=== PATIENT | male | born 1995 | race Caucasian/White ===

== ENCOUNTER 2022-11-30 04:29 | Emergency (ER) | payer BC, OTHER ==
[~2022-11-30] VITALS: Ht 185.4 cm; Wt 122.7 kg
[2022-11-30] MEDS ORDERED: LIDOCAINE VISCOUS 2% 15ML UD PO ONE (07:15)
[2022-11-30 07:19] VITALS: BP 151/98
[2022-11-30] MEDS ORDERED: LIDO2SOL18 MT (07:32)
[2022-11-30] MEDS ORDERED: AZIT250T9 PO (07:32)
== END 2022-11-30 07:42 | disposition home or self-care (01) ==
LOC: ER 04:29
DX: J06.9 Acute upper respiratory infection, unspecified (principal); H66.91 Otitis media, unspecified, right ear
CPT/HCPCS: 87070; 87880